=== PATIENT | male | born 1995 | race Hispanic/Latino ===

== ENCOUNTER 2021-06-25 11:34 | Emergency (ER) | payer SELFPAY ==
[2021-06-25 11:46] VITALS: BP 126/80; PULSE 63; RESP 18; TEMP 36.9; O2SAT 100
--- NOTE | 2021-06-25 12:21 | ED.MALEGU ---
HPI - Male Genitourinary General Chief complaint: Urogenital-Male Stated complaint: STD check Time Seen by Provider: 06/25/21 12:20 Source: patient Mode of arrival: ambulatory Limitations: no limitations History of Present Illness HPI Narrative: Marcia Corrigan is a 26 yo male with no PMH who comes with complaints of tingling is penis after having unprotected sex with an ex-girlfriend who is broken up with. He has no direct discharge but does have some soreness in his testicles, started 2 days ago Related Data Home Medications Medication Instructions Recorded Confirmed albuterol sulfate 2 puff INHALATION QID PRN 06/25/21 06/25/21 Allergies Allergy/AdvReac Type Severity Reaction Status Date / Time peanut Allergy Mild Rash Verified 06/25/21 12:09 SEAFOOD Allergy Mild Rash Uncoded 06/25/21 12:09 Review of Systems Review of Systems: CONSTITUTIONAL: Denies fever, chills, sweats. EYES: Denies visual changes, redness, discharge. ENT: Denies rhinorrhea, congestion, sore throat, otalgia. CARDIOVASCULAR: Denies chest pain, palpitations, edema. RESPIRATORY: Denies dyspnea, wheezing, cough GASTROINTESTINAL: Denies abdominal pain, nausea, vomiting, diarrhea. GENITOURINARY: Denies dysuria, hematuria, abnormal discharge. And testicles and at the end of penis after unprotected sex SKIN: Denies rash or itching. NEUROLOGIC: Denies numbness, or focal weakness. PSYCHIATRIC: Denies anxiety or depression. [facility] Past Medical History Medical History No acute medical problems Family History Family History (Updated 06/25/21 @ 12:42 by Melissa Givens CNP) Other No acute medical problems Social History Social History (Updated 06/25/21 @ 12:42 by Melissa Givens CNP) Smoking status: Never smoker Alcohol intake: never Comments At time of signature, I agree with nursing past medical, surgical, social and family history. There is no relevant family history pertinent to the presenting complaint. Exam Narrative: GENERAL: This is a well-nourished, well-developed patient, in mild distress. HEAD: normocephalic, atraumatic. EYES:Sclera clear/white. Vision is grossly intact. EARS: External ears normal, . Hearing grossly intact. NOSE: External nose normal without nasal discharge, nares without redness, no rhinorrhea. THROAT: Mucous membranes moist, NECK: Neck supple, CARDIOVASCULAR: Regular rate and rhythm without murmurs, gallops, or rubs. RESPIRATORY: Clear to auscultation. Breath sounds equal bilaterally. No wheezes, rales, or rhonchi. GASTROINTESTINAL: Abdomen soft, SKIN: warm, intact with no suspicious lesions or rash, good texture and turgor. NEURO: awake, alert, and oriented to person, place and time. There were no obvious focal neurologic abnormalities. Steady gait EXTREMITIES: Normal range of motion. BACK: Nontender without deformity Course Course Emergency Course: Patient comes with penile tingling and mild soreness in testicles Treated with Rocephin no; UA shows trace leukocytes GC chlamydia swab sent Given doxycycline for 1 week on outpatient Vital Signs Vital signs: Vital Signs Temperature 98.5 F 06/25/21 11:46 Pulse Rate 63 06/25/21 11:46 Respiratory Rate 18 06/25/21 11:46 Blood Pressure 126/80 06/25/21 11:46 Pulse Oximetry 100 06/25/21 11:46 Temperature 98.5 F 06/25/21 11:46 Pulse Rate 63 06/25/21 11:46 Respiratory Rate 18 06/25/21 11:46 Blood Pressure 126/80 06/25/21 11:46 Pulse Oximetry 100 06/25/21 11:46 MDM - Male Genitourinary Differential Diagnosis Differential diagnosis: Likely urinary tract infection, prostatitis and other Lab Data Labs: Lab Results 06/25/21 Range/Units 11:58 C.trachomatis RNA (TMA) Pending N.gonorrhoeae RNA (TMA) Pending T. vaginalis Amp RNA Pending Urine Glucose Negative Reference Rang
[2021-06-25] MEDS: cefTRIAXone 500 MG VIAL IM (12:29)
[2021-06-25] MEDS: LIDOCAINE HCL 1% LOCAL INJ 20 ML VIAL IM (12:30)
== END 2021-06-25 12:52 | disposition home or self-care (01) ==
PROVIDERS: Emergency Provider Nurse Practitioner
DX: Z20.2 Contact with and (suspected) exposure to infections with a predominantly sexual mode of transmission (principal); J45.909 Unspecified asthma, uncomplicated
CPT/HCPCS: 81003; 87086; 87088; 87491; 87591; 87661; 96372; 99213; G0463; J0696

== ENCOUNTER 2022-11-01 15:11 | Emergency (ER) | payer OTHER, SELFPAY ==
--- NOTE | 2022-11-01 15:17 | ED.SOB ---
HPI - SOB/Dyspnea General Chief Complaint: Upper Respiratory Infection Stated Complaint: Hard to breath Time Seen by Provider: 11/01/22 15:20 Source: patient and RN notes reviewed Mode of arrival: ambulatory Limitations: no limitations History of Present Illness HPI Narrative: 27-year-old male presents with concern with shortness of breath and wheezing. Reports a history of asthma as a child, he has not been medicated for quite some time. Reports over the last several days he has had shortness of breath. Reports he used his daughter's nebulizer this morning and it helped his symptoms but did not resolve his symptoms. MD elicited complaint: shortness of breath Related Data Allergies Allergy/AdvReac Type Severity Reaction Status Date / Time peanut Allergy Mild Rash Verified 11/01/22 15:27 SEAFOOD Allergy Mild Rash Uncoded 11/01/22 15:27 Review of Systems Review of Systems: CONSTITUTIONAL: Denies malaise, chills, sweats, or fever. EYES: Denies visual changes, redness, or discharge. ENT: Denies rhinorrhea, congestion, sinus pain, otalgia and sore throat. CARDIOVASCULAR: Denies chest pain, palpitations, or edema. RESPIRATORY: Reports cough, wheezing, dyspnea. GASTROINTESTINAL: Denies abdominal pain, nausea, vomiting, diarrhea SKIN: Denies rash or itching. MUSCULOSKELETAL: Denies myalgia. NEUROLOGIC: Denies headache. All systems reviewed & are unremarkable except as noted in HPI and below PMFSH Past Medical History Medical History No acute medical problems Family History Family History (Updated 06/25/21 @ 12:42 by Melissa Givens, [employer] OPERATOR) Other No acute medical problems Social History Social History (Updated 06/25/21 @ 12:42 by Melissa Givens, RADIOSONDE OPERATOR) Smoking status: Never smoker Alcohol intake: never Comments At time of signature, agree with nursing past medical, surgical, social and family history. There is no relevant family history pertinent to the presenting complaint Exam Narrative: GENERAL: Well-appearing, well-nourished, and in no acute distress. HEAD: Normocephalic EYES: PERRLA, conjunctivae clear ENT: Nares clear. Mucous membranes moist. TM pearly becker with dull light reflex bilaterally; no tragal tenderness. Oropharynx not erythematous without lesions. Tonsils not enlarged and without exudate, no drooling, no hoarseness, no trismus, uvula midline. NECK: Supple. No lymphadenopathy CHEST: Scattered expiratory and expiratory wheeze, aeration fair, breath sounds equal. No rhonchi, rales, or stridor. No respiratory distress, speaks in full sentences. HEART: Regular rate and rhythm. No murmur heard. SKIN: Warm, dry, no rash. NEURO: Alert and oriented x3. PSYCH: Normal mood and affect Course Course Emergency Course: Patient is aware of diagnosis, understands and agrees to treatment plan. Anticipatory guidance given. Patient agrees to follow-up as directed and is aware of reasons to seek care at the emergency department. Portions of this record may have been created with voice recognition software Level of Care: Express Care Visit Reevaluation(s) Reevaluation #1: Wheezing improved, aeration improved. Still some scattered wheeze. Date: 11/01/22 Time: 15:50 Vital Signs Vital signs: Reviewed. MDM - SOB/Dyspnea MDM Narrative Medical decision making narrative: Exam findings show no acute concerns or changes; patient is non-toxic appearing and is in no distress. Patient is appropriate for outpatient treatment and follow-up. Differential Diagnosis Differential diagnosis: Likely acute exacerbation of chronic obstructive airways disease, community acquired pneumonia and asthma with exacerbation Lab Data Attestation: I reviewed the patient's lab results. Critical Care Time Critical Care Time Critical Care Time: No Discharge Plan Discharge Clinical Impression: Asthma exacerbation Patient Disposition: Home, Self-Care Condition: Sta
[2022-11-01 15:29] VITALS: BP 152/82; PULSE 83; RESP 16; TEMP 36.4; O2SAT 98
[2022-11-01] MEDS: IPRATROPIUM BR 0.02% INH SOLN 0.5 MG/2.5 ML VIAL INHALATION (15:33)
[2022-11-01] MEDS: ALBUTEROL SULFATE NEB 2.5 MG/3 ML INH INHALATION (15:33)
== END 2022-11-01 16:00 | disposition home or self-care (01) ==
PROVIDERS: Emergency Provider Nurse Practitioner; PCP Emergency Medicine
DX: J45.901 Unspecified asthma with (acute) exacerbation (principal)
CPT/HCPCS: 94640; 99213; G0463